=== PATIENT | male | born 1995 | race Caucasian/White ===

== ENCOUNTER 2019-11-29 01:55 | Emergency (ER) | payer OTHER ==
[~2019-11-29] VITALS: Ht 177.8 cm; Wt 77.1 kg
[2019-11-29 02:00] VITALS: BP 124/79; Ht 177.8 cm; Wt 77.1 kg
== END 2019-11-29 03:13 | disposition other institution (70) ==
LOC: ED 01:55
DX: Z02.89 Encounter for other administrative examinations (principal)